=== PATIENT | female | born 1955 | race Caucasian/White ===

== ENCOUNTER 2020-03-10 05:13 | Observation (INO) ==
--- NOTE | 2020-02-18 12:48 | PAT Medication Instructions ---
Medication Instructions Date of Service February 18, 2020 Home Medications aspirin [Aspir-81] 81 mg PO QAM cholecalciferol (vitamin D3) [Vitamin D3] 125 mcg PO QPM clonazepam 1 mg PO QAM duloxetine [Cymbalta] 60 mg PO QAM naproxen sodium [Aleve] 220 mg PO BID PRN rosuvastatin 20 mg PO QAM zinc 10 mg PO QPM ASK your surgeon for instructions naproxen sodium [Aleve] 220 mg PO BID PRN Take morning of surgery With a small sip of water, OTHERWISE NOTHING TO EAT OR DRINK AFTER MIDNIGHT: aspirin [Aspir-81] 81 mg PO QAM clonazepam 1 mg PO QAM duloxetine [Cymbalta] 60 mg PO QAM rosuvastatin 20 mg PO QAM Take evening before surgery cholecalciferol (vitamin D3) [Vitamin D3] 125 mcg PO QPM zinc 10 mg PO QPM Other Notes If you have any questions please call us at [phone] or [phone] or [phone] or [phone]
--- NOTE | 2020-02-19 10:44 | Anesthesiology Consultation ---
Date of Service February 19, 2020 Assessment & Plan (1) Encounter for pre-operative examination: Per assessment on 02/18: Travel screen negative. No known COVID-19 positive cont acts or current COVID-19 related symptoms. Uses PPE. Surgeon arranging preop COVID testing. Awaiting results. Chart Review Chart Review: Acceptable Risk for Surgery and Patient seen in Pre Admission Testing Teaching & Discussion Pre-Anesthesia Teaching/Discussion Notes: Instructed NPO after midnight before surgery,except medications with 15 cc of water. Medication instructions provided according to the PAT guidelines. History Surgery Operation Date: 03/10/20 07:30 Proposed Procedures p Right Total Knee Arthroplasty - Doug Gregory, Height/Weight Height: 5 ft 1 in Weight: 78 kg Allergies Allergy/AdvReac Type Severity Reaction Status Date / Time cephalexin [From Keflex] Allergy Mild Hives Verified 02/11/20 12:37 Sulfa (Sulfonamide Allergy Mild Hives Verified 02/11/20 12:37 Antibiotics) Medications Home Medications Medication Instructions Recorded Confirmed Last Taken aspirin [Aspir-81] 81 mg PO QAM 02/11/20 02/11/20 Unknown cholecalciferol (vitamin D3) 125 mcg PO QPM 02/11/20 02/11/20 Unknown [Vitamin D3] clonazepam 1 mg PO QAM 02/11/20 02/11/20 Unknown duloxetine [Cymbalta] 60 mg PO QAM 02/11/20 02/11/20 Unknown naproxen sodium [Aleve] 220 mg PO BID PRN 02/11/20 02/11/20 Unknown rosuvastatin 20 mg PO QAM 02/11/20 02/11/20 Unknown zinc 10 mg PO QPM 02/11/20 02/11/20 Unknown Past Medical History Medical History Depression Fibromyalgia GERD (gastroesophageal reflux disease) Hyperlipidemia Kidney stones hx, passed without intervention Obesity Osteoarthritis Transient ischemic attack (TIA) 10+ years ago Exercise / Class Metabolic Activity III < 4 Walking/Shop/Light housework Past Surgical History Surgical History History of placement of ear tubes and then had removed Hx of section x1 Hx of exploratory laparotomy ovarian cyst and appendix removed Hx of repair of right rotator cuff Hx of thumb surgery right thumb joint due to fall Hx of tonsillectomy Past Anesthesia History No Hx of Anesthesia Complications (except PONV) and No Family Hx of Anesthesia Complications (except mother (PONV)) History of PONV History of PONV (with remote surgeries, no issues with more recent surgeries when pre-treatment used) and Hx of Motion Sickness (rare) Social History Smoking Status: Current every day smoker tobacco type: cigarettes Smoking cigarettes per day: 1/2 ppd x 30 years Do You Dip or Chew Tobacco: No Hx Alcohol Use: Yes Alcohol type: wine alcohol intake frequency: holidays/special occasions only Hx Substance Use: No substance use type: does not use Review of Systems Chronic post-nasal drip x years s/p extensive ENT evaluation- causes occasional cough. No new changes. Patient denies chest pain, shortness of breath, fever, chills, wheezing, palpitations. Physical Exam Vital Signs VITALS BP 107/57 P 81 TEMP 97.9 SP02 98%RA RESP 16 PHYSICAL Full neck and c-spine range of motion. Full TMJ range of motion. TMD 3 finger breaths Mallampati Score 3 Dentition: upper denture Lungs: clear throughout to auscultation Cardiac: regular rate and rhythm, no murmurs noted Spine: normal Carotid arteries: negative bruit Extremities: no edema Testing Laboratory Results 02/19/20 11:01 02/19/20 11: PT 10.9 Seconds (9.0-12.0) 02/19/20 11: INR 1.0 (0.9-1.1) 02/19/20 11: APTT 33.1 Seconds (21.0-31.0) H 02/19/20 11:01 Blood Type A Positive 02/19/20 11:01 Antibody Screen NEGATIVE 02/19/20 11:01 Mildly elevated isolated PTT- will forward preop labs to PCP for continuity of care. Electrocardiogram Date: 02/19/20 Findings: + NSR @ (81) Chest X-Ray Date: 02/19/20 FINDINGS: PA and lateral chest radiographs are obtained. No prior studies are available for comparison at the time of dictation. The cardiomediastinal silhouette is unremarkable. The lungs and pleural spaces are clear. There is no pneumothorax. The skeletal structures are osteopenic. The bony thorax appears intact. Degenerative change is noted in the thoracic spine. IMPRESSION: No active disease in the chest.
--- NOTE | 2020-02-19 11:30 | XRay Report ---
TWO VIEW CHEST CLINICAL HISTORY: Preoperative examination. FINDINGS: PA and lateral chest radiographs are obtained. No prior studies are available for compariso n at the time of dictation. The cardiomediastinal silhouette is unremarkable. The lungs and pleural spaces are clear. There is no pneumothorax. The skeletal structures are osteopenic. The bony thorax appears intact. Degenerative change is noted in the thoracic spine. IMPRESSION: No active disease in the chest. ACT 112: Negative or not required by law. Electronically signed by: Justice Hardwick M.D. 02/19/2020 11:28 AM
[2020-02-19 11:51] LABS: Basophils # (auto) 0.08 K/uL (0-0.2); Eosinophils % (auto) 2.4 %; Hematocrit (blood only) 47.8 % (37-47); Hemoglobin 16.5 g/dL (12.0-16.0); Immature Granulocytes # (auto) 0.02 K/uL (0.00-0.02); Immature Granulocytes % (auto) 0.2 %; Lymphocytes # (auto) 2.81 K/uL (1.2-3.4); Mean Corpuscular Hemoglobin 31.7 pg (25-34); Mean Corpuscular Hgb Conc 34.5 g/dL (32-36); Mean Corpuscular Volume 91.9 fL (80-100); Mean Platelet Volume 9.2 fL (7.4-10.4); Monocytes # (auto) 0.46 K/uL (0.11-0.59); Monocytes % (auto) 5.6 %; Neutrophils % (auto) 56.8 %; Platelet Count 251 K/uL (130-400); RDW Coefficient of Variation 13.7 % (11.5-14.5); White Blood Count 8.27 K/uL (4.8-10.8)
[2020-02-19 12:03] LABS: Partial Thromboplastin Ratio 1.2; Partial Thromboplastin Time 33.1 Seconds (21.0-31.0); Prothrombin Time 10.9 Seconds (9.0-12.0)
[2020-02-19 13:37] LABS: BUN Creatinine Ratio 13.3 (10-20); Calcium 9.4 mg/dl (8.5-10.1); Creatinine Clr Calc Pharmacy 67.2 ml/min; Est GFR (African American) 88.9; Est GFR (Non-African American) 76.7; Potassium 4.4 mmol/L (3.5-5.1)
--- NOTE | 2020-02-20 05:00 | Electrocardiogram Report ---
Test Reason : Blood Pressure : / mmHG Vent. Rate : 081 BPM Atrial Rate : 081 BPM P-R Int : 140 ms QRS Dur : 088 ms QT Int : 404 ms P-R-T Axes : 074 078 062 degrees QTc Int : 469 ms Normal sinus rhythm Normal ECG No previous ECGs available Confirmed by Hans Basilio ([id number]) on 02/20/2020 5:00:04 AM Referred By: Doug Gregory Confirmed By:Hans Basilio
[2020-03-10] MEDS ORDERED: ACETAMINOPHEN 500 MG TAB PO SCH (06:00)
[2020-03-10] MEDS ORDERED: dexAMETHasone 4 MG TAB PO SCH (06:00)
[2020-03-10] MEDS ORDERED: TRANEXAMIC ACID 1,000 MG **IV Pre-op IV SCH (06:00)
[2020-03-10] MEDS ORDERED: ROPIVACAINE 0.5% HCL/PF 150 MG, BUPIVACAINE 0.75% MPF 20 ML, EPINEPHrine 30MG/30ML (OR ... INSTIL SCH (06:00)
[2020-03-10] MEDS ORDERED: GABAPENTIN 600 MG DOSE PO SCH (06:00)
[2020-03-10] MEDS ORDERED: TRANEXAMIC ACID 1,000 MG **IV Intra-op IV SCH (06:00)
[2020-03-10] MEDS ORDERED: LR 60ML/HR IV SCH (06:00)
[2020-03-10] MEDS ORDERED: LR 500ML BOLUS, THEN 15ML/HR IV SCH (06:00)
[2020-03-10] MEDS ORDERED: FAMOTIDINE 20 MG TAB PO SCH (06:00)
--- NOTE | 2020-03-10 06:24 | History & Physical Report ---
Date of Service March 10, 2020 Assessment & Plan (1) Osteoarthritis of right knee: We will proceed with a right knee replacement. Postoperatively she will be placed on aspirin for DVT prophylaxis and kept overnight in the hospital for postoperative medical management. She plans to use [facility] [facility] upon discharge Present on Admission?: Yes History of Present Illness Chief Complaint: Primary osteoarthritis of the right knee Primary Care Provider: Chip Tovar is a pleasant 64-year-old female who is been doing with chronic increasing right knee pain. X-rays and clinical examination have been diagnostic for advanced osteoarthritis of the right knee. After failing conservative treatment, she has elected to proceed with a right total knee arthroplasty. Allergies Allergy/AdvReac Type Severity Reaction Status Date / Time cephalexin [From Keflex] Allergy Mild Hives Verified 03/10/20 05:50 Sulfa (Sulfonamide Allergy Mild Hives Verified 03/10/20 05:50 Antibiotics) Home Medications Medication Instructions Recorded Confirmed Type aspirin [Aspir-81] 81 mg PO QAM 02/11/20 03/10/20 History cholecalciferol (vitamin D3) 125 mcg PO QPM 02/11/20 03/10/20 History [Vitamin D3] clonazepam 1 mg PO QAM 02/11/20 03/10/20 History duloxetine [Cymbalta] 60 mg PO QAM 02/11/20 03/10/20 History naproxen sodium [Aleve] 220 mg PO BID PRN 02/11/20 03/10/20 History rosuvastatin 20 mg PO QAM 02/11/20 03/10/20 History zinc 10 mg PO QPM 02/11/20 03/10/20 History Past Med/Surg History Medical History Depression Fibromyalgia GERD (gastroesophageal reflux disease) Hyperlipidemia Kidney stones hx, passed without intervention Obesity Osteoarthritis Transient ischemic attack (TIA) 10+ years ago Surgical History History of placement of ear tubes and then had removed Hx of section x1 Hx of exploratory laparotomy ovarian cyst and appendix removed Hx of repair of right rotator cuff Hx of thumb surgery right thumb joint due to fall Hx of tonsillectomy Social History Smoking Status: Current every day smoker Cigarettes Per Day: 1/2 ppd x 30 years; Second Hand Exposure: No; Do You Dip or Chew Tobacco: No; Tobacco Cessation Education Requested by Patient: No Hx Alcohol Use: Yes Alcohol type: wine Hx Substance Use: No Preferred Language: Ethiopian Communication Ability: Effective Freezer Unloader Required: No Beliefs That Will Affect Care: None Current Living Situation: Spouse Other Information That Helps Us Care for You: No Feels Safe at Home: Yes Safety Concerns: Feels Safe At This Time Assistive Devices: Glasses Review of Systems Review of Systems: All systems reviewed & are unremarkable except as noted in HPI & below Physical Exam Constitutional: WD/WN, vitals as above Eyes: PERRL, conjunctivae normal, anicteric sclerae ENMT: external ear and nose normal, oropharynx normal Neck: trachea midline, no thyromegaly Respiratory: normal respiratory effort Cardiovascular: RRR, no murmur, no edema Gastrointestinal (Abdomen): normal bowel sounds, soft, nontender, no hepatosplenomegaly Musculoskeletal: On physical examination of the right knee there is a trace effusion. There is near full range of motion and no evidence of instability. There is significant tenderness palpation along the medial and lateral joint lines and over the distal femoral condyles. Psychiatric: A+Ox3, euthymic affect Results & Data Results & Data ([facility]) Vital Signs (Past 12 Hours) Vital Signs Temp Pulse Resp BP Pulse Ox 03/10/20 05:53 36.4 C L 90 18 137/86 97 Diagnostic Findings Radiographs of the right knee demonstrate advanced osteoarthritis with joint space narrowing osteophyte formation and [id number] articulation. PG Care Time/CCT Total # of Minutes Spent Total Time Spent with Patient: Total time spent is greater than 50% in coordination of care (as documented) at patient's floor/unit and/or counseling patient: Coding Level of Care Code None Diagnoses Osteoarthritis of right knee M17.11
[2020-03-10] MEDS ORDERED: BUPIVACAINE 0.5 % 5 MG/1 ML PF 10ML VIAL ONE (06:30)
[2020-03-10] MEDS ORDERED: EPINEPHrine INJ 1 MG/ML AMP ONE (06:31)
[2020-03-10] MEDS ORDERED: BUPIVACAINE 0.25% 30 ML VIAL ONE (06:31)
[2020-03-10] MEDS ORDERED: MIDAZOLAM HCL 1 MG/ML 2ML VIAL ONE (06:45)
[2020-03-10] MEDS ORDERED: LIDOCAINE HCL 2% 2 ML VIAL/AMP(20MG/ML) INFIL ONE (06:45)
[2020-03-10] MEDS ORDERED: ONDANSETRON INJ 2 MG/ML 2 ML VIAL ONE ×2 (06:45→08:44)
[2020-03-10] MEDS ORDERED: fentaNYL citrate 100 MCG/2 ML VIAL ONE (06:45)
[2020-03-10] MEDS ORDERED: PROPOFOL IV EMULSION 10 MG/ML 20 ML VIAL IV ONE (06:45)
[2020-03-10] MEDS ORDERED: fentaNYL citrate 100 MCG/2 ML VIAL IV PRN (06:56)
[2020-03-10] MEDS ORDERED: ONDANSETRON INJ 2 MG/ML 2 ML VIAL IV PRN ×2 (06:56→10:30)
[2020-03-10] MEDS ORDERED: ePHEDrine sulfate 50 MG/ML AMP IV PRN (06:56)
[2020-03-10] MEDS ORDERED: PROMETHAZINE HCL 12.5 MG in SODIUM CHLORIDE 0.9% 50 ML IV PRN (06:56)
[2020-03-10] MEDS ORDERED: ATROPINE SULFATE 0.1 MG/ML 10ML SYR IV PRN (06:56)
[2020-03-10] MEDS ORDERED: HYDROmorphone INJ 2 MG/ML SYR/VIAL IV PRN (06:56)
[2020-03-10] MEDS ORDERED: ORTHO JOINT ANESTHETIC ONE (06:58)
[2020-03-10] MEDS ORDERED: PHENYLEPHRINE 100MCG/ML 5ML SYR ONE (07:54)
--- NOTE | 2020-03-10 08:49 | Operative Report ---
PG Post Operative Report Pre & Post Diagnosis Operation Date: 03/10/20 07:30 Pre-Op Diagnosis: Degenerative Joint Disease Right Knee Post-Op Diagnosis: Degenerative Joint Disease Right Knee I identified the patient and participated in the time-out.: Yes Procedure Operation Date: 03/10/20 07:30 Actual Procedures p Right Total Knee Arthroplasty(Right) - Doug Gregory DO Surgeon Doug Gregory DO Graffiti Cleaner Doug Mondragon PAC Estimated Blood Loss 10 Findings Consistent with Post-Op Diagnosis Specimens Right femoral and tibial bone Complications none Disposition Disposition: Recovery Room Indications La is a pleasant 64-year-old female who is been dealing with chronic increasing right knee pain. X-rays and clinical examination were diagnostic for advanced osteoarthritis of the right knee. After failing conservative treatment, she elected proceed with a right total knee arthroplasty. Description of Procedure Implants used: I used a [employer] Persona total knee arthroplasty system with a size 7 standard femur, E tibia, 32 patella, and a size 10 medial congruent polyethylene bearing. All components were cemented in place with Palacos G cement. La arrived [facility] for the above procedure. She was seen in the preoperative holding area and the operative extremity was identified and signed. She was given a preoperative antibiotic, TXA, a spinal anesthetic and an adductor nerve block. She was taken back to the operating room and laid on the table in supine position. She was given basic sedation. The operative knee was then prepped and draped in sterile fashion. A timeout was done, and the patient and the operative extremity was properly identified. A midline incision was made directly over the patella. Dissection was taken down to the extensor mechanism. A subvastus arthrotomy was used. The medial retinaculum was released and the fat pad was mostly excised. The knee was flexed and the ACL, PCL, and meniscus were removed. A drill was sent down the center of the femoral canal followed by an intramedullary nel. Off that nel a distal femoral cutting block was placed. 9 mm was resected off the distal femur at 5 of valgus. A posterior referencing AP sizing guide was then placed on the distal femur. The femur measured to be a size 7 standard. 2 drill holes were placed in 3 of external rotation. A 4-in-1 cutting block was then impacted into place. Anterior, posterior, and chamfer cuts were then made. The proximal tibia was then exposed. An external tibial alignment guide was placed. A tibial cut guide was then anchored in place and the proximal tibia was then resected. The posterior aspect of the knee was then opened up and any additional meniscus fragments and osteophytes were removed. The tibia measured to be a size E. The tibial plate was then placed in the appropriate rotation and the tibia was drilled and punched. Trial components were then placed. I used a size 10 medial congruent polyethylene insert. The knee was brought through a full range of motion and felt to be stable. The peg holes for the femoral component were then drilled. The patella was then everted and 9 mm was resected off the posterior aspect of the patella. The patella measured to be a size 32. 3 peg holes were then drilled. A trial patella was placed. The knee was once again brought through a full range of motion and felt to be stable. Trial components were then removed. The surrounding soft tissues were injected with 100 cc of an orthopedic pain control cocktail. All components were then cemented into place with Palacos G cement. The final polyethylene insert was then snapped into place. Once cement was dry the tourniquet was deflated. Hemostasis was obtained. A dilute betadyne lavage was then done for 3 minutes. The joint was then irrigated with normal saline solution. The subvastus arthrotomy was then closed with #1 Vicryl suture. The skin was closed with 2-0 Vicryl, 3-0V lock suture, and samantha. A Silverlon and a soft compressive dressing were placed. She was then transferred to a hospital bed and taken to the postanesthesia care unit in stable condition. She tolerated the procedure well. Doug Mondragon PA-C, was present for the entire procedure. He was critical for patient positioning, prepping, draping, retraction exposure, wound closure and application of sterile dressing. I attest to the content of the Intraoperative Record and any orders documented therein. Any exceptions are noted below.
[2020-03-10] MEDS ORDERED: ceFAZolin 2000MG 2,000 MG/15 ML SYR IV ONE (08:51)
--- NOTE | 2020-03-10 09:32 | XRay Report ---
RIGHT KNEE 2 VIEWS History: Right total knee arthroplasty. Degenerative arthritis. Postop. FINDINGS: The patient is status post a right total knee arthroplasty. The hardware is intact. No frac ture or dislocation. Skin samantha are in place. IMPRESSION: Right total knee arthroplasty. No evidence for hardware complication. ACT 112: Negative or not required by law. Electronically signed by: Tesfaye Bennett M.D. 03/10/2020 9:31 AM
--- NOTE | 2020-03-10 09:44 | Anesthesiology Progress Note ---
Date of Service March 10, 2020 Anesthesia Post Procedure Vital Signs Vital Signs: Temp Pulse Pulse Resp BP Pulse Ox 03/10/20 09:40 85 16 116/83 98 03/10/20 09:30 86 16 114/83 98 03/10/20 09:20 86 15 114/76 99 03/10/20 09:10 91 H 18 105/68 93 03/10/20 09:01 36.8 C 104 H 17 110/73 100 03/10/20 06:34 77 20 126/83 98 03/10/20 05:53 36.4 C L 90 18 137/86 97 Transfer of Care Handoff Completed per policy Notes Mental Status: alert / awake / arousable and participated in evaluation Patient Amnestic to Procedure: Yes Nausea / Vomiting: adequately controlled Pain: adequately controlled Airway Patency, RR, SpO2: stable & adequate BP & HR: stable & adequate Hydration State: stable & adequate Anesthetic Complications: no major complications apparent and Pt Satisfied with anesthetic care
[2020-03-10] MEDS ORDERED: clonazePAM 1 MG TAB PO SCH ×2 (10:30→21:00)
[2020-03-10] MEDS ORDERED: NALOXONE HCL 0.4 MG/1 ML VIAL/CARP IV PRN (10:30)
[2020-03-10] MEDS ORDERED: MAGNESIUM HYDROXIDE SUSP 30 ML UDC PO PRN (10:30)
[2020-03-10] MEDS ORDERED: bisacodyL 10 MG SUPP PR PRN (10:30)
[2020-03-10] MEDS ORDERED: METOCLOPRAMIDE HCL INJ 5 MG/ML 2 ML VIAL IV PRN (10:30)
[2020-03-10] MEDS ORDERED: oxyCODONE HCL IR 5 MG TAB (IMMEDIATE RELEASE) PO PRN (10:30)
[2020-03-10] MEDS ORDERED: HYDROmorphone INJ 0.5 MG/0.5 ML SYR IV PRN (10:30)
[2020-03-10] MEDS: SODIUM CHLORIDE 0.9% 1000ML 1,000 ML IV SCH ×2 (10:44→21:20)
[2020-03-10] MEDS: MULTIVITAMIN TAB PO SCH (10:59)
[2020-03-10] MEDS: ASPIRIN 81 MG ECTAB PO SCH ×2 (10:59→21:19)
[2020-03-10] MEDS: DULoxetine HCL 60 MG CAP PO SCH (10:59)
[2020-03-10] MEDS: ROSUVASTATIN CALCIUM 20 MG TAB PO SCH (11:00)
[2020-03-10] MEDS: DOCUSATE SODIUM 100 MG CAP PO SCH ×2 (11:00→21:18)
[2020-03-10] MEDS: KETOROLAC 30 MG/ML VIAL IV SCH ×2 (11:00→18:08)
[2020-03-10] MEDS ORDERED: Nursing to Pharmacy Communication SCH (12:15)
[2020-03-10] MEDS: ACETAMINOPHEN 500 MG TAB PO SCH ×2 (12:50→21:19)
[2020-03-10] MEDS: ceFAZolin 2000MG 2,000 MG/15 ML SYR IV SCH (15:54)
[2020-03-10] MEDS ORDERED: SENNA 8.6 MG TAB PO SCH (21:00)
[2020-03-11] MEDS: ceFAZolin 2000MG 2,000 MG/15 ML SYR IV SCH (00:11)
[2020-03-11] MEDS: KETOROLAC 30 MG/ML VIAL IV SCH ×2 (00:12→05:30)
[2020-03-11] MEDS: ACETAMINOPHEN 500 MG TAB PO SCH (05:30)
[2020-03-11] MEDS ORDERED: GABAPENTIN 600 MG DOSE PO SCH (06:00)
[2020-03-11] MEDS ORDERED: dexAMETHasone 4 MG TAB PO SCH ×2 (06:00→08:00)
[2020-03-11] MEDS ORDERED: ACETAMINOPHEN 500 MG TAB PO SCH (06:00)
[2020-03-11] MEDS ORDERED: TRANEXAMIC ACID 1,000 MG **IV Intra-op IV SCH (06:00)
[2020-03-11] MEDS ORDERED: FAMOTIDINE 20 MG TAB PO SCH (06:00)
[2020-03-11] MEDS ORDERED: TRANEXAMIC ACID 1,000 MG **IV Pre-op IV SCH (06:00)
[2020-03-11 06:12] LABS: Hematocrit (blood only) 38.5 % (37-47); Mean Corpuscular Hemoglobin 30.9 pg (25-34); Mean Corpuscular Hgb Conc 33.8 g/dL (32-36); Mean Corpuscular Volume 91.4 fL (80-100); Mean Platelet Volume 8.8 fL (7.4-10.4); Platelet Count 236 K/uL (130-400); RDW Coefficient of Variation 13.4 % (11.5-14.5); RDW Standard Deviation 44.6 fL (36.4-46.3); Red Blood Count 4.21 M/uL (4.2-5.4); White Blood Count 14.56 K/uL (4.8-10.8)
[2020-03-11 06:39] LABS: Calcium 8.2 mg/dl (8.5-10.1); Creatinine Clr Calc Pharmacy 63.5 ml/min; Est GFR (African American) 82.8; Est GFR (Non-African American) 71.4
--- NOTE | 2020-03-11 07:26 | Anesthesiology Progress Note ---
Date of Service March 11, 2020 Anesthesia Post Procedure Vital Signs Vital Signs: Temp Pulse Pulse Resp BP BP Pulse Ox 03/11/20 04:00 36.9 C 82 18 112/61 94 03/10/20 23:59 36.6 C 80 16 97/62 L 93 03/10/20 21:20 36.7 C 82 18 107/69 93 03/10/20 15:38 36.7 C 85 16 101/65 94 03/10/20 13:35 37.0 C 88 18 100/66 94 03/10/20 12:08 81 16 105/69 95 03/10/20 11:14 84 16 109/67 97 03/10/20 10:48 81 16 104/65 99 03/10/20 10:15 37.0 C 89 18 124/78 99 03/10/20 10:05 86 17 101/65 98 03/10/20 09:50 36.5 C 86 17 114/68 98 03/10/20 09:40 85 16 116/83 98 03/10/20 09:30 86 16 114/83 98 03/10/20 09:20 86 15 114/76 99 03/10/20 09:10 91 H 18 105/68 93 03/10/20 09:01 36.8 C 104 H 17 110/73 100 Notes Mental Status: alert / awake / arousable and participated in evaluation Nausea / Vomiting: adequately controlled Pain: adequately controlled Airway Patency, RR, SpO2: stable & adequate BP & HR: stable & adequate Hydration State: stable & adequate Neuraxial Anesthesia: was administered, sensory block is resolving and see Notes below (Patient states she is having some numbness in her toes on operative leg.)
[2020-03-11] MEDS: MULTIVITAMIN TAB PO SCH (08:30)
[2020-03-11] MEDS: DULoxetine HCL 60 MG CAP PO SCH (08:30)
[2020-03-11] MEDS: DOCUSATE SODIUM 100 MG CAP PO SCH (08:30)
[2020-03-11] MEDS: ASPIRIN 81 MG ECTAB PO SCH (08:31)
[2020-03-11] MEDS: ROSUVASTATIN CALCIUM 20 MG TAB PO SCH (08:31)
--- NOTE | 2020-03-11 12:51 | Orthopedic Progress Note ---
Date of Service March 11, 2020 Assessment & Plan (1) Status post right knee replacement: Overall she is doing as well as expected. She will be seen by physical therapy today for ambulation and range of motion exercises. She is on aspirin for DVT prophylaxis. She can be discharged home later today. She will follow- up with orthopedics in 2 weeks. Present on Admission?: Yes Admission and Anticipated Discharge Date Admission Date: March 10, 2020 Gualberto Tovar was seen and examined at bedside this morning. Overall she is doing well. She is having too much pain in the right knee. She has been up and ambulating to the bathroom. She has no complaints. Physical Exam Physical Exam: On physical examination of the right knee, the dressing is clean and dry. Her legs out full extension. She still has some difficulty with dorsiflexion because the nerve block is still in effect. Results & Data ([facility]) Vital Signs (Past 12 Hours) Vital Signs Temp Pulse Resp BP BP Pulse Ox 03/11/20 09:00 36.7 C 76 18 105/64 112/61 95 03/11/20 08:34 36.7 C 76 18 105/64 95 03/11/20 04:00 36.9 C 82 18 112/61 94 Diagnostic Findings Postoperative x-rays of the right knee show the prosthesis to be in anatomic alignment without any evidence of fracture, dislocation, or loosening. PG Care Time/CCT Total # of Minutes Spent Total Time Spent with Patient: Total time spent is greater than 50% in coordination of care (as documented) at patient's floor/unit and/or counseling patient: Coding Level of Care Code None Diagnoses Status post right knee replacement Z96.651
--- NOTE | 2020-03-11 12:52 | Discharge Summary ---
Date of Service March 11, 2020 Admission HPI Per Admitting Provider La is a pleasant 64-year-old female who is been doing with chronic increasing right knee pain. X-rays and clinical examination have been diagnostic for advanced osteoarthritis of the right knee. After failing conservative treatment, she has elected to proceed with a right total knee arthroplasty. Principal Diagnosis Left knee replacement Discharge Data Allergies Allergy/AdvReac Type Severity Reaction Status Date / Time cephalexin [From Keflex] Allergy Mild Hives Verified 03/10/20 05:50 Sulfa (Sulfonamide Allergy Mild Hives Verified 03/10/20 05:50 Antibiotics) Consultations 03/10/20 10:30 Consult Case Management - Discharge Planning Routine Procedures Performed Operation Date: 03/10/20 07:30 Actual Procedures p Right Total Knee Arthroplasty(Right) - Doug Gregory DO Ordered Studies 03/10/20 05:00 US - OR guided needle placemen Routine Hospital Course (1) Status post right knee replacement: On March 10, 2020 La arrived at [facility] and underwent a left knee replacement without complication. She had a spinal anesthetic. Postoperatively she was started on aspirin for DVT prophylaxis and transferred to the general orthopedic floors. Her hospital course was uneventful. On postop day #1 her H&H was stable and her pain was well controlled. She was able to participate well with physical therapy doing ambulation and range of motion e xercises. She was then discharged to home. She will follow-up with orthopedics in 2 weeks. Total Time Total Time Spent Total Time Spent (In Minutes): 20 Discharge Plan Discharge Items Patient Disposition: Home - Self-Care Reason For Visit: Degenerative Joint Disease Right Knee Discharge Diagnosis: Right Knee Replacement Activity: As commented below Non-emergency contact: Surgeon Call non-emergency contact if: your wound has increased redness and your wound has increased drainage Follow-up/Referrals: Chip Vasquez D.O. [Primary Care Provider] - Diet: Regular Addtl Attending Provider Instructions: Activity and Therapy Recommendations: * If you are using [facility] then therapy will be provided at your home until they feel you have accomplished all of your goals. * If you are using [facility] then Physical Therapy will be provided until they feel you are ready to start Outpatient Physical Therapy. * If you are not using home therapy then Outpatient Physical Therapy should start about 3-5 days from your day of surgery. Therapy will last about 6-10 weeks * It is important not to put a pillow under your knee when you are relaxing or sleeping. It is just as important to make sure you are getting your knee perfectly straight as it is to regain your knee bend. * You were shown a series of exercises in the hospital. Do these exercises three times each day including the exercises you were shown in physical therapy. * Get up and walk several times each day. For the first four weeks, try not to stand or walk for more than one hour at a time. If you do stand or walk for more than one hour, you will not hurt anything, but your leg will likely swell. * As you feel comfortable, you may change from the walker or crutches to a cane and then to independent walking. Medications: * Narcotic You will likely be sent home from the hospital with a prescription for the narcotic pain medication that worked best throughout your stay. * Aspirin Most patients will be required to take Aspirin 81mg twice a day for 6 weeks after surgery. This is obtained [id number] and a prescription is not necessary. * Other medications may be prescribed for specific circumstances. If you have any questions, please call the office at . * Resume previous home medications unless otherwise instructed TEDs/Elastic Stockings: The white elastic stockings help limit swelling and prevent blood clots from forming in your legs.~ The more you wear them, the more they work. Wear them for six weeks. Dressing Care: Leave the Silverlon dressing in place for 7 days. After 7 days you may remove the dressing. If the incision is not draining then you may leave the samantha open to air. If there is a little bit of drainage or if the samantha are getting stuck on your clothing then cover the incision with a dry dressing. The samantha will be removed at your 2 week follow-up appointment. Showering: You may shower with the Silverlon dressing in place. Do not let the shower spray hit the dressing directly. Pat the Silverlon dressing dry. If the dressing becomes wet underneath, then simply remove the dressing. Keep the incision dry until you are 7 days out from the day of surgery. After 7 days you may remove the Silverlon dressing and shower with the samantha exposed. Let soapy water run over the samantha and pat them dry. Do not scrub or soak the incision. Things To Watch For: * Drainage from the incision site that occurs more than one week after your surgery. * Increased redness at the incision site. * Fever above 102 degrees Fahrenheit. * Unusual chest pain or shortness of breath. * Call [facility] at with any of the above problems Follow-Up Visit: Follow-up with Dr. Gregory's PA (Doug Mondragon) 2-3 weeks after your day of surgery. He will remove your samantha and answer any questions. If you have any additional questions or concerns, Dr Gregory is usually in the office at the same time and will be available An appointment was probably scheduled when you signed-up for surgery in the office. If you have any questions call Office Instructions: More detailed instructions as well as Frequently Asked Questions were provided in a folder by our office when you signed-up for surgery. Please review these instructions when you get home. If you have any further questions or concerns, please feel free to call the office at [phone] Pending Studies at Discharge: No Stand-Alone Forms: [facility], Smoking Cessation Medications and DC Order Prescriptions: New oxycodone 5 mg Tablet 5 mg PO Q4H PRN (Reason: pain) Qty: 30 RF: 0 Continued clonazepam 1 mg Tablet 1 mg PO QAM RF: 0 naproxen sodium [Aleve] 220 mg Tablet 220 mg PO BID PRN (Reason: Pain) RF: 0 zinc 10 mg Tablet 10 mg PO QPM RF: 0 rosuvastatin 20 mg Tablet 20 mg PO QAM RF: 0 duloxetine [Cymbalta] 60 mg Capsule,Delayed Release(Dr/Ec) 60 mg PO QAM RF: 0 cholecalciferol (vitamin D3) [Vitamin D3] 125 mcg (5,000 unit) Tablet 125 mcg PO QPM RF: 0 Changed aspirin 81 mg Tablet,Delayed Release (Dr/Ec) 81 mg PO BID 42 Days Qty: 0 RF: 0 No Action (DME) Wheeled Walker Misc See Rx Instructions .MEDSUPPLY Qty: 1 RF: 0 Discharge Orders: Discharge Order (Routine); Ordered 03/11/20 Ordered By: Doug Gregory Admission Data Admit Date/Time: 03/10/20 09:03 Attending Provider: Doug Gregory Admit Provider: Doug Gregory Primary Care Provider: Chip Vasquez Other Interventions: Discharge Summary Assessment (RN) Last Done: 03/11/20 09:00 Coding Level of Care Code D/C Day Management <30 mins Diagnoses Status post right knee replacement Z96.651
== END 2020-03-11 11:20 | disposition home or self-care (01) ==
LOC: ASU 05:13 → 3W 05:13